=== PATIENT | male | born 1955 | race Caucasian/White ===

== ENCOUNTER 2020-05-22 14:45 | Emergency (ER) | payer OTHER ==
[2020-05-22 15:00] VITALS: BP 145/67; PULSE 68; TEMP 98.2; BMI 30.3
[2020-05-22] MEDS ORDERED: IBUPROFEN 400 MG TABLET (FP) PO ONE (15:13)
[2020-05-22 16:25] LABS: BASO % 4.6 % (0-2.0); EOS % 1.1 % (0-4.5); LYMPH % 17.3 % (8-40); MCH 31.7 pg (25.7-33.7); MCHC 34.1 g/dl (32.0-35.9); MEAN PLT VOLUME 8.1 fl (7.5-11.1); MONO % 8.7 % (3.8-10.2); NEUT % 68.3 % (42.8-82.8); PLATELET COUNT 243 K/MM3 (134-434); RBC 4.73 M/mm3 (4.00-5.60); RDW 13.1 % (11.9-15.9); WHITE BLOOD COUNT 9.1 K/mm3 (4.0-10.8)
[2020-05-22 16:38] LABS: ALBUMIN 4.4 g/dl (3.4-5.0); BILIRUBIN,TOTAL 1.5 mg/dl (0.2-1); CALCIUM 9.1 mg/dl (8.5-10); CREATININE 1.9 mg/dl (0.55-1.3); POTASSIUM 4.9 mmol/L (3.5-5.1); TOT PROT 8.4 g/dl (6.4-8.2)
[2020-05-22] MEDS ORDERED: SODIUM CHLORIDE 0.9% 500 ML INFUS.BAG IV ONE (16:58)
[2020-05-22 19:41] LABS: CALCIUM 8.7 mg/dl (8.5-10); CREATININE 1.8 mg/dl (0.55-1.3)
== END 2020-05-22 19:22 | disposition left against medical advice (07) ==
LOC: SUPCPDRO 14:45 → FER 14:45
DX: R79.82 Elevated C-reactive protein (CRP) (principal)
CPT/HCPCS: 36415; 74176-TC; 80048; 80053; 81003; 81015; 85025; 87086; 99284-25

== ENCOUNTER 2020-05-29 15:45 | Emergency (ER) | payer OTHER ==
[2020-05-29 16:29] VITALS: BP 132/72; PULSE 77; TEMP 98.2; BMI 28.7
== END 2020-05-29 16:29 | disposition home or self-care (01) ==
LOC: FER 15:45
PROC: 2W3CX1Z Immobilization of Right Lower Arm using Splint (ICD-10-PCS; principal; 2020-05-29)
DX: S52.532A Colles' fracture of left radius, initial encounter for closed fracture (principal)
CPT/HCPCS: 99282-25

== ENCOUNTER 2020-08-28 04:24 | Day surgery (SDC) | payer OTHER ==
[2020-08-27 08:54] VITALS: BMI 30.6
[2020-08-28 11:44] VITALS: TEMP 97.8
[2020-08-28] MEDS ORDERED: LACTATED RINGERS SOLUTION 1,000 ML IV SCH (11:45)
[2020-08-28 12:03] VITALS: BP 134/80; PULSE 65
== END 2020-08-28 11:20 | disposition home or self-care (01) ==
LOC: JASU-ENDO 04:24
PROVIDERS: ATTEND Internal Medicine Gastroenterology
PROC: 0DB78ZX Excision of Stomach, Pylorus, Via Natural or Artificial Opening Endoscopic, Diagnostic (ICD-10-PCS; 2020-08-28)
PROC: 0DB18ZX Excision of Upper Esophagus, Via Natural or Artificial Opening Endoscopic, Diagnostic (ICD-10-PCS; principal; 2020-08-28 09:00)
DX: K22.2 Esophageal obstruction (principal); D13.0 Benign neoplasm of esophagus; K29.50 Unspecified chronic gastritis without bleeding; R10.84 Generalized abdominal pain; R93.3 Abnormal findings on diagnostic imaging of other parts of digestive tract
CPT/HCPCS: 88305-TC; 88342-TC

== ENCOUNTER 2021-01-23 08:29 | Emergency (ER) | payer OTHER ==
[2021-01-23 08:55] VITALS: BP 148/85; PULSE 88; TEMP 98.2; BMI 27.6
[2021-01-23] MEDS ORDERED: ACETAMINOPHEN 1000 MG/100 ML VIAL (NON FORMULARY) IVPB ONE (09:20)
[2021-01-23] MEDS ORDERED: METOCLOPRAMIDE HCL INJECTION 10 MG/2 ML VIAL IVPUSH ONE (09:20)
[2021-01-23] MEDS ORDERED: SODIUM CHLORIDE 1,000 ML IV ONE ×2 (09:20→11:38)
[2021-01-23] MEDS ORDERED: ACETAMINOPHEN INJECTION 100 ML IVPB ONE (09:22)
[2021-01-23] MEDS ORDERED: METOCLOPRAMIDE HCL INJECTION 10 MG/2 ML VIAL ONE (09:22)
[2021-01-23 10:02] LABS: BASO % 1.2 % (0-2.0); HEMATOCRIT 41.4 % (35.4-49); HEMOGLOBIN 13.9 GM/dl (11.7-16.9); LYMPH % 5.4 % (8-40); MCH 30.6 pg (25.7-33.7); MCHC 33.5 g/dl (32.0-35.9); MEAN CELL VOLUME 91.4 fl (80-96); MEAN PLT VOLUME 8.9 fl (7.5-11.1); MONO % 7.5 % (3.8-10.2); NEUT % 85.9 % (42.8-82.8); PLATELET COUNT 153 10^3/uL (134-434); RBC 4.54 M/mm3 (4.00-5.60); RDW 13.1 % (11.9-15.9); WHITE BLOOD COUNT 7.6 K/mm3 (4.0-10.8)
[2021-01-23 10:03] LABS: AMORP URATES 1+ /hpf (NONE SEEN); EPITHELIAL CELLS RARE /hpf
[2021-01-23 10:04] LABS: INR 1.26 (0.82-1.09); PROTHROMBIN TIME (PATIENT) 14.1 SEC (10.2-13.0)
[2021-01-23 10:33] LABS: ALBUMIN 3.4 g/dl (3.4-5.0); ALK PHOS 75 U/L (45-117); ANION GAP 13 MMOL/L (8-16); BILIRUBIN,TOTAL 0.7 mg/dl (0.2-1); CALCIUM 7.9 mg/dl (8.5-10); CHLORIDE 95 mmol/L (98-107); CO2 22 mmol/L (21-32); CREATININE 1.7 mg/dl (0.55-1.3); GLUCOSE,RANDOM 95 mg/dl (74-106); SGOT/AST 30 U/L (15-37); SGPT/ALT 19 U/L (13-61); SODIUM 130 mmol/L (136-145)
[2021-01-23 13:33] LABS: CREATININE 1.7 mg/dl (0.55-1.3)
== END 2021-01-23 13:29 | disposition left against medical advice (07) ==
LOC: FER 08:29
PROC: 3E033NZ Introduction of Analgesics, Hypnotics, Sedatives into Peripheral Vein, Percutaneous Approach (ICD-10-PCS; principal; 2021-01-23)
PROC: 3E033GC Introduction of Other Therapeutic Substance into Peripheral Vein, Percutaneous Approach (ICD-10-PCS; 2021-01-23)
PROC: 3E0337Z Introduction of Electrolytic and Water Balance Substance into Peripheral Vein, Percutaneous Approach (ICD-10-PCS; 2021-01-23)
PROC: 3E0337Z Introduction of Electrolytic and Water Balance Substance into Peripheral Vein, Percutaneous Approach (ICD-10-PCS; 2021-01-23)
DX: E87.1 Hypo-osmolality and hyponatremia (principal); R51.9 Headache, unspecified; N19 Unspecified kidney failure; R80.9 Proteinuria, unspecified
CPT/HCPCS: 36415; 70450-TC; 74176-TC; 80048; 80053; 81003; 81015; 82550; 84484; 85025; 85610; 86850; 86900; 86901; 87086; 99285-25; J0131